=== PATIENT | male | born 1960 | race Caucasian/White ===

== ENCOUNTER 2021-01-21 17:39 | Emergency (ER) | payer MEDICAID ==
[~2021-01-21] VITALS: Ht 188 cm; Wt 90.0 kg
[2021-01-21] MEDS ORDERED: TAMS-13 PO (17:57)
[2021-01-21 20:38] LABS: APPEARANCE,URINE CLOUDY (CLEAR); BILIRUBIN,URINE NEGATIVE (NEGATIVE); GLUCOSE, URINE (UA) 500 mg/dL (NEGATIVE); KETONES,URINE TRACE mg/dL (NEGATIVE); LEUKOCYTE ESTERASE ,URINE LARGE (NEGATIVE); NITRATE,URINE POSITIVE (NEGATIVE); OCCULT BLOOD,URINE MODERATE (NEGATIVE); PROTEIN,URINE NEGATIVE (NEGATIVE)
[2021-01-21 21:09] LABS: BACTERIA,URINE Few /HPF (None Seen); RBC,URINE 0-2 /HPF (0-2); SQUAMOUS EPITHELIAL CELL,UR Few /LPF (None Seen); WBC,URINE 26-50 /HPF (0-5)
[2021-01-21] MEDS ORDERED: TAMSULOSIN HCL 0.4 MG CAPSULE PO ONE (21:45)
[2021-01-21] MEDS ORDERED: CIPROFLOXACIN HCL 250 MG TABLET PO ONE (21:45)
[2021-01-21 23:07] VITALS: BP 114/72
== END 2021-01-22 00:06 | disposition home or self-care (01) ==
LOC: EMS 17:40
DX: N39.0 Urinary tract infection, site not specified (principal); I10 Essential (primary) hypertension; K21.9 Gastro-esophageal reflux disease without esophagitis; F15.90 Other stimulant use, unspecified, uncomplicated; F17.210 Nicotine dependence, cigarettes, uncomplicated
CPT/HCPCS: 81001; 87086; 99285; Z7502; Z7610